=== PATIENT | female | born 1955 | race Caucasian/White ===

== ENCOUNTER → 2017-11-07 14:00 | Oncology outpatient (ONC) | payer OTHER, SELFPAY ==
--- NOTE | 2017-10-19 09:41 | PC.NURSE ---
Addendum entered by Apolonia Duke R.N. 10/22/17 16:11: Notes reviewed.Mary Jo would like pt to have CBC ,CMP monthly ,bone marrow biopsy in December and schedule a follow-up to determine ,work readiness and plan of care from hereon. message left for pt as to when last blood draw was so as to determine follow up date and/or sooner if needed.Pt asked to call back. Original Note: Per Apolonia's written note on 10/11/17 to Mary Jo HELM: Pt called and saw Marko Soy at [facility]. Last ANC 899 on 10/01 adn 1390 on 10/05. Per Pt, Dr Olivier didn't feel any intervention needed, just monitoring for a stable trend as pt told him employer is asking about returning to work. She does not feel ready. He plans a bone marrow in December. No follow up with us scheduled. When do you want to have her seen? It seems a visit and eval re: plan needed prior to return to work letter and etc. Mary Jo's response: Complex pancytopenia-unclear etiology-did she get a Dx at [facility]? I can't determine follow up without diagnosis or notes from [facility]. Today's update: request for records from [facility] sent by Roseanna. Will wait for records and schedule accordingly.
[2017-11-07 14:06] LABS: Add Manual Diff / Slide Review NO; Basophils Percent Auto 1.2 % (0-2); Eosinophils Percent Auto 6.4 % (2-4); Hematocrit 39.1 % (36-46); Hemoglobin 14.2 g/dL (12.0-16.0); Lymphocytes Percent Auto 41.4 % (25-40); Mean Corpuscular HGB Conc 36.3 % (30-36); Mean Corpuscular Hemoglobin 32.5 PG (26-34); Mean Corpuscular Volume 89.6 fL (80-100); Monocytes Percent Auto 8.9 % (3-14); Neutrophils Absolute Auto 1700 /uL (3000-5900); Neutrophils Percent Auto 42.1 % (50-75); Platelet Count 237 X10^3/uL (150-400); Red Blood Cell Count 4.36 X10^6/uL (4.0-5.2); Red Cell Distribution Width 13.7 % (11.6-14.8)
--- NOTE | 2017-11-07 14:09 | ONC.PN ---
Assessment and Plan - Time Spent with Patient IMPRESSION: 1. LEUKOPENIA/NEUTROPENIA, IMPROVED. 2. ANEMIA, NORMOCYTIC. RESOLVED. 3. THROMBOCYTOPENIA, RESOLVED. 4. CHRONIC FATIGUE. 5. COGNITIVE/MEMORY CONCERNS. Previous bone marrow aspiration on 07/01/2017 showed normal cellular marrow with markedly reduced myelopoiesis and relative erythroid predominance with mildly increased megakaryocytes and no evidence of acute leukemia. Immunohistochemistry stains showed CD 34 positive blast count less than 5%. By flow cytometry CD 34 blast count 3.9%. Cytogenetics normal female karyotype, 46, XX. No significant reticulin fibrosis. MDS FISH panel showed no abnormalities. She was treated with G-CSF with ANC rising up to 14,300 when it was stopped on September 17, 2017. She was advised to stop taking some over the counter herbal supplements and Yoruba herbs when she initially presented with leukopenia. She was also seen in consultation at [facility] by Dr. Marko Olivier October 08, 2017. His impression was a periodic episodes of pancytopenia likely secondary to underlying infectious agents which had since resolved. He suggested monitoring her blood counts monthly and returning to [place] for repeat bone marrow aspirate in December. They also anticipate performing a hotspot mutational analysis to look for any underlying clonal abnormalities at that time. I reviewed the findings and his recommendations with Ms. Rhodes at today's visit. She did not recall the plan to return to [place] in December. She is willing to do so and have the repeat bone marrow aspirate recommended by Dr. Olivier. We will assist in monitoring peripheral blood counts and plan to see her back in follow-up after the repeat bone marrow studies. Reviewed related questions and overall plan of care with her today. PLAN: 1. Continue self monitoring and call back with new questions or concerns. 2. CBC monthly. 3. Follow-up at [facility] with Dr. Olivier in December for bone marrow aspirate and related studies as planned. 4. Follow up with other providers as planned. 5. Return appointment with me in 2 months. DICTATED BY CYNDY MAHER MD MEDICAL ONCOLOGY AND HEMATOLOGY PN -Subjective Interval history: Medical oncology/hematology progress note Date of service: November 07, 2017 Patient name: Alethea Rhodes Date of : 1955 for Identification: Ms. Rhodes is a 62-year-old woman with pancytopenia who returns in follow-up today. Previously followed by Dr. Dasilva. Last seen here in clinic by Mary Jo HELM on 09/26/2017. Interval history: - Additional ROS Additional ROS: REVIEW OF SYSTEMS: General: No fever, chills or recent weight loss. Does note ongoing fatigue as primary concern. HEENT: No diplopia, epistaxis, gingival bleeding or dysphagia. Respiratory no productive cough or dyspnea. Cardiac: No chest pain, PND or orthopnea. GI: As above. : Stable. Musculoskeletal: Notes thinning skin for several months as well as recent hair loss/thinning. Neurologic: Trouble concentrating as well as memory loss over the past 6 months approximately. Results - Labs 11/07/17 13:39 11/07/17 13:39 Laboratory Last Values WBC 4.0 X10^3/uL (4.5-11.0) L 11/07/17 13:39 RBC 4.36 X10^6/uL (4.0-5.2) 11/07/17 13:39 Hgb 14.2 g/dL (12.0-16.0) 11/07/17 13:39 Hct 39.1 % (36-46) 11/07/17 13:39 MCV 89.6 fL (80-100) 11/07/17 13:39 MCH 32.5 PG (26-34) 11/07/17 13:39 MCHC 36.3 % (30-36) H 11/07/17 13:39 RDW 13.7 % (11.6-14.8) 11/07/17 13:39 Plt Count 237 X10^3/uL (150-400) 11/07/17 13:39 Neut % (Auto) 42.1 % (50-75) L 11/07/17 13:39 Lymph % (Auto) 41.4 % (25-40) H 11/07/17 13:39 [place] % (Auto) 8.9 % (3-14) 11/07/17 13:39 Eos % (Auto) 6.4 % (2-4) H 11/07/17 13:39 Baso % (Auto) 1.2 % (0-2) 11/07/17 13:39 Neut # (Auto) 1700 /uL (3871-3446) L 11/07/17 13:39 - Imaging Additional studies: Procedures Extraction of Iliac Bone Marrow, Percutaneous Approach, Diagnostic (06/22/17) Home Medications and Allergies Home Medications Medication Instructions Recorded Confirmed Type acetaminophen [Tylenol Extra 500 mg PO PRN PRN #0 07/11/17 History Strength] filgrastim [Neupogen] 300 mcg SQ QDAY #30 07/11/17 Rx [SUPPLIES FOR GCSF] #0 07/19/17 History amoxicillin-pot clavulanate 500 mg PO BID #14 tab 08/06/17 Rx [Augmentin] fluconazole [Diflucan] 100 mg PO QDAY #30 tab 08/06/17 Rx Allergies Allergy/AdvReac Type Severity Reaction Status Date / Time codeine [CODEINE] Allergy Unknown Unverified 09/19/17 11:59 Exam - Constitutional positive thin, positive cooperative - Routine HEENT Exam Head: Present: normocephalic, atraumatic. Absent: cushingoid faces Eye: Present: EOMI, PERRL. Absent: conjunctival icterus, scleral injection, periorbital ecchymosis, periorbital swelling ENT: Present: mucous membranes moist, oropharynx clear - Routine Neck Exam Present: supple, full ROM. Absent: lymphadenopathy, thyromegaly - Routine Chest/Breast/Axilla Exam Axillae: Absent: lymphadenopathy - Routine Respiratory Exam Present: Clear to auscultation bilaterally. Absent: decreased breath sounds, accessory muscle use, rales, wheezes - Routine Cardiovascular Exam Present: RRR, S1, S2. Absent: murmur, S3 - Routine Abdominal Exam Present: soft, normoactive bowel sounds. Absent: distended, organomegaly Palpation/Percussion: Absent: hepatomegaly, splenomegaly - Routine Extremities Exam Absent: cyanosis, clubbing, edema - Routine Skin Exam Absent: intact, cyanosis, erythema, mottling, petechiae, jaundice, rash, ecchymosis - Routine Neurological Exam Present: alert, oriented X3, moving all extremities, normal speech - Routine Psychiatric Exam Present: normal affect, normal thought process, cooperative
[2017-11-07 14:19] VITALS: BP 120/62; PULSE 76; RESP 15; TEMP 36.7; O2SAT 98
[2017-11-07 14:19] LABS: Alanine Aminotransferase 33 IU/L (9-52); Albumin 4.3 g/dL (3.5-5.0); Alkaline Phosphatase 109 U/L (38-126); Aspartate Aminotransferase 24 IU/L (14-36); BUN Creatinine Ratio 27.1 (6-22); Bilirubin Total 0.5 mg/dL (0.2-1.3); Blood Urea Nitrogen 19 mg/dL (7-17); Calcium 9.2 mg/dL (8.4-10.2); Carbon Dioxide 26 mmol/L (22-32); Chloride 102 mmol/L (98-107); Estimated Glomerular Filt Rate > 60.0 mL/min (>60); Globulin 2.2 g/dL (1.7-4.1); Glucose 93 mg/dL (80-110); HEMOLYSIS 18 (0-50); Potassium 4.3 mmol/L (3.4-5.1); Sodium 139 mmol/L (137-145); Total Protein 6.5 g/dL (6.3-8.2)
--- NOTE | 2017-11-07 14:24 | P.PNONC_ITS ---
Assessment and Plan - Time Spent with Patient IMPRESSION: 1. LEUKOPENIA/NEUTROPENIA, IMPROVED. 2. ANEMIA, NORMOCYTIC. RESOLVED. 3. THROMBOCYTOPENIA, RESOLVED. 4. CHRONIC FATIGUE. 5. COGNITIVE/MEMORY CONCERNS. Previous bone marrow aspiration on 07/01/2017 showed normal cellular marrow with markedly reduced myelopoiesis and relative erythroid predominance with mildly increased megakaryocytes and no evidence of acute leukemia. Immunohistochemistry stains showed CD 34 positive blast count less than 5%. By flow cytometry CD 34 blast count 3.9%. Cytogenetics normal female karyotype, 46 , XX. No significant reticulin fibrosis. MDS FISH panel showed no abnormalities. She was treated with G-CSF with ANC rising up to 14,300 when it was stopped on September 17, 2017. She was advised to stop taking some over the counter herbal supplements and Macedonian herbs when she initially presented with leukopenia. She was also seen in consultation at [facility] by Dr. Marko Olivier October 08, 2017. His impression was a periodic episodes of pancytopenia likely secondary to underlying infectious agents which had since resolved. He suggested monitoring her blood counts monthly and returning to [place] for repeat bone marrow aspirate in December. They also anticipate performing a hotspot mutational analysis to look for any underlying clonal abnormalities at that time. I reviewed the findings and his recommendations with Ms. Rhodes at today's visit. She did not recall the plan to return to [place] in December. She is willing to do so and have the repeat bone marrow aspirate recommended by Dr. Olivier. We will assist in monitoring peripheral blood counts and plan to see her back in follow-up after the repeat bone marrow studies. Reviewed related questions and overall plan of care with her today. PLAN: 1. Continue self monitoring and call back with new questions or concerns. 2. CBC monthly. 3. Follow-up at [facility] with Dr. Olivier in December for bone marrow aspirate and related studies as planned. 4. Follow up with other providers as planned. 5. Return appointment with me in 2 months. DICTATED BY CYNDY MAHER MD MEDICAL ONCOLOGY AND HEMATOLOGY PN -Subjective Interval history: Medical oncology/hematology progress note Date of service: November 07, 2017 Patient name: Alethea Rhodes Date of : 1955 for Identification: Ms. Rhodes is a 62-year-old woman with pancytopenia who returns in follow-up today. Previously followed by Dr. Dasilva. Last seen here in clinic by Mary Jo HELM on 09/26/2017. Interval history: - Additional ROS Additional ROS: REVIEW OF SYSTEMS: General: No fever, chills or recent weight loss. Does note ongoing fatigue as primary concern. HEENT: No diplopia, epistaxis, gingival bleeding or dysphagia. Respiratory no productive cough or dyspnea. Cardiac: No chest pain , PND or orthopnea. GI: As above. : Stable. Musculoskeletal: Notes thinning skin for several months as well as recent hair loss/thinning. Neurologic: Trouble concentrating as well as memory loss over the past 6 months approximately. Results - Labs 11/07/17 13:39 11/07/17 13:39 Laboratory Last Values WBC 4.0 X10^3/uL (4.5-11.0) L 11/07/17 13:39 RBC 4.36 X10^6/uL (4.0-5.2) 11/07/17 13:39 Hgb 14.2 g/dL (12.0-16.0) 11/07/17 13:39 Hct 39.1 % (36-46) 11/07/17 13:39 MCV 89.6 fL (80-100) 11/07/17 13:39 MCH 32.5 PG (26-34) 11/07/17 13:39 MCHC 36.3 % (30-36) H 11/07/17 13:39 RDW 13.7 % (11.6-14.8) 11/07/17 13:39 Plt Count 237 X10^3/uL (150-400) 11/07/17 13:39 Neut % (Auto) 42.1 % (50-75) L 11/07/17 13:39 Lymph % (Auto) 41.4 % (25-40) H 11/07/17 13:39 [place] % (Auto) 8.9 % (3-14) 11/07/17 13:39 Eos % (Auto) 6.4 % (2-4) H 11/07/17 13:39 Baso % (Auto) 1.2 % (0-2) 11/07/17 13:39 Neut # (Auto) 1700 /uL (7749-1057) L 11/07/17 13:39 - Imaging Additional studies: Procedures Extraction of Iliac Bone Marrow, Percutaneous Approach, Diagnostic (06/22/17) Home Medications and Allergies Home Medications Medication Instructions Recorded Confirmed Type acetaminophen [Tylenol Extra 500 mg PO PRN PRN #0 07/11/17 History Strength] filgrastim [Neupogen] 300 mcg SQ QDAY #30 07/11/17 Rx [SUPPLIES FOR GCSF] #0 07/19/17 History amoxicillin-pot clavulanate 500 mg PO BID #14 tab 08/06/17 Rx [Augmentin] fluconazole [Diflucan] 100 mg PO QDAY #30 tab 08/06/17 Rx Allergies Allergy/AdvReac Type Severity Reaction Status Date / Time codeine [CODEINE] Allergy Unknown Unverified 09/19/17 11:59 Exam - Constitutional positive thin, positive cooperative - Routine HEENT Exam Head: Present: normocephalic, atraumatic. Absent: cushingoid faces Eye: Present: EOMI, PERRL. Absent: conjunctival icterus, scleral injection, periorbital ecchymosis, periorbital swelling ENT: Present: mucous membranes moist, oropharynx clear - Routine Neck Exam Present: supple, full ROM. Absent: lymphadenopathy, thyromegaly - Routine Chest/Breast/Axilla Exam Axillae: Absent: lymphadenopathy - Routine Respiratory Exam Present: Clear to auscultation bilaterally. Absent: decreased breath sounds, accessory muscle use, rales, wheezes - Routine Cardiovascular Exam Present: RRR, S1, S2. Absent: murmur, S3 - Routine Abdominal Exam Present: soft, normoactive bowel sounds. Absent: distended, organomegaly Palpation/Percussion: Absent: hepatomegaly, splenomegaly - Routine Extremities Exam Absent: cyanosis, clubbing, edema - Routine Skin Exam Absent: intact, cyanosis, erythema, mottling, petechiae, jaundice, rash, ecchymosis - Routine Neurological Exam Present: alert, oriented X3, moving all extremities, normal speech - Routine Psychiatric Exam Present: normal affect, normal thought process, cooperative
--- NOTE | 2017-11-09 14:19 | ONC.NAV ---
Description: T/C re: Disability Benefits/Options Activity: Pt called to ask questions about the differences in types of disability that she can apply for, and the processes involved in the different options. Provided teaching about SSDI, short-term state disability (DSHS), unemployment and SSI. SAUSAGE CUTTER then sent the Social Security Disability application in the mail for pt. She will call this SAUSAGE CUTTER back next week should she have more questions and need for assistance in navigating the application process.
--- NOTE | 2017-11-20 12:55 | ONC.NAV ---
Description: Employment Disability Forms Activity: Completed pt's forms for Employment Security (unemployment/disability) and faxed them to the number provided on the form. Sent pt the originals.
== END ==
PROVIDERS: Nurse Practitioner Gerontology; PCP Family Medicine; Visit Provider Internal Medicine Hematology & Oncology
DX: D75.9 Disease of blood and blood-forming organs, unspecified (principal)
CPT/HCPCS: 36415; 80053; 85025; 99214

== ENCOUNTER → 2020-11-10 11:53 | Outpatient (CLI) | payer MEDICARE, SELFPAY ==
[2020-11-10 19:27] LABS: Hematocrit 41.6 % (36-46); Hemoglobin 14.2 g/dL (12.0-16.0); Mean Corpuscular HGB Conc 34.1 % (30-36); Mean Corpuscular Hemoglobin 30.1 PG (26-34); Mean Corpuscular Volume 88.3 fL (80-100); Platelet Count 205 X10^3/uL (150-400); Red Blood Cell Count 4.72 X10^6/uL (4.0-5.2); Red Cell Distribution Width 13.4 % (11.6-14.8); White Blood Cell Count 2.7 X10^3/uL (4.5-11.0)
[2020-11-10 20:11] LABS: Neutrophils Absolute Manual 918 /uL (3000-5900); Total Cells Counted 100
[2020-11-10 20:12] LABS: Platelet Estimate Adequate on smear; RBC Morphology Normal Morphology; Reactive Lymphocytes 1+
== END ==
PROVIDERS: PCP Family Medicine; Visit Provider Family Medicine
DX: D61.818 Other pancytopenia (principal)
CPT/HCPCS: 85025

== ENCOUNTER → 2021-04-01 10:05 | Outpatient (CLI) | payer MEDICARE, SELFPAY ==
[2021-04-01 18:47] LABS: Hematocrit 40.2 % (36-46); Hemoglobin 14.3 g/dL (12.0-16.0); Mean Corpuscular HGB Conc 35.5 % (30-36); Mean Corpuscular Hemoglobin 31.2 PG (26-34); Mean Corpuscular Volume 87.7 fL (80-100); Platelet Count 182 X10^3/uL (150-400); Red Blood Cell Count 4.59 X10^6/uL (4.0-5.2); Red Cell Distribution Width 15.1 % (11.6-14.8); White Blood Cell Count 4.6 X10^3/uL (4.5-11.0)
[2021-04-01 19:03] LABS: Add Manual Diff / Slide Review YES
[2021-04-01 19:27] LABS: Neutrophils Absolute Manual 690 /uL (3000-5900); Total Cells Counted 100
[2021-04-01 19:28] LABS: Anisocytosis 2+; Smudge Cells 1+
[2021-04-03 12:34] LABS: SARS CoV19 IgG Negative (Negative)
== END ==
PROVIDERS: PCP Family Medicine; Visit Provider Physician Assistant Medical
DX: D70.9 Neutropenia, unspecified (principal); R50.81 Fever presenting with conditions classified elsewhere; D61.818 Other pancytopenia; K12.1 Other forms of stomatitis
CPT/HCPCS: 85007; 85025; 86769

== ENCOUNTER → 2021-06-21 07:56 | Outpatient (CLI) | payer MEDICARE, SELFPAY ==
[2021-06-21 19:01] LABS: White Blood Cell Count 2.7 X10^3/uL (4.5-11.0)
[2021-06-21 19:07] LABS: Hematocrit 41.6 % (36-46); Hemoglobin 14.6 g/dL (12.0-16.0); Mean Corpuscular Hemoglobin 30.2 PG (26-34); Mean Corpuscular Volume 86.2 fL (80-100); Platelet Count 163 X10^3/uL (150-400); Red Blood Cell Count 4.82 X10^6/uL (4.0-5.2)
[2021-06-21 19:44] LABS: Neutrophils Absolute Manual 810 /uL (3000-5900); Platelet Morphology Comment NOTE; RBC Morphology Normal Morphology; Total Cells Counted 100
[2021-06-24 13:55] LABS: SARS-CoV-2 Antibody Titer <0.8
== END ==
PROVIDERS: PCP Family Medicine; Visit Provider Family Medicine
DX: D61.818 Other pancytopenia (principal)
CPT/HCPCS: 85025; 86769

== ENCOUNTER → 2021-08-18 13:26 | Outpatient (CLI) | payer MEDICARE, SELFPAY ==
[2021-08-18 20:35] LABS: Hematocrit 40.3 % (36-46); Hemoglobin 14.1 g/dL (12.0-16.0); Mean Corpuscular Volume 88.8 fL (80-100); Platelet Count 172 X10^3/uL (150-400); Red Blood Cell Count 4.54 X10^6/uL (4.0-5.2); Red Cell Distribution Width 14.8 % (11.6-14.8); White Blood Cell Count 2.3 X10^3/uL (4.5-11.0)
[2021-08-18 20:38] LABS: Neutrophils Absolute Manual 322 /uL (3000-5900); Total Cells Counted 50
[2021-08-18 20:39] LABS: Anisocytosis 1+; Ovalocytes 1+; Poikilocytosis 1+
== END ==
PROVIDERS: PCP Family Medicine; Visit Provider Family Medicine
DX: D70.9 Neutropenia, unspecified (principal); R50.81 Fever presenting with conditions classified elsewhere
CPT/HCPCS: 85025

== ENCOUNTER 2021-12-02 16:00 | Emergency (ER) | payer MEDICARE, SELFPAY ==
[2021-12-02] VITALS (7 sets, daily range): BP systolic 134–150; BP diastolic 69–89; PULSE 69–77; RESP 18–28; TEMP 36.7; O2SAT 97–99; BMI 16.9
--- NOTE | 2021-12-02 16:16 | PC.NURSE ---
Prior to event, patient was bent over petting her cat, stood up and started walking when she felt a shaking sensation in her head and has lost of memories after event. Denies hitting her head, not on thinners.
[2021-12-02] MEDS: SODIUM CHLORIDE 0.9% 1,000 ML 125 ML IV (16:39)
[2021-12-02 16:55] LABS: Add Manual Diff / Slide Review NO; Basophils Absolute Auto 0 /uL (0-100); Eosinophils Absolute Auto 0 /uL (0-450); Hematocrit 38.9 % (36-46); Hemoglobin 13.6 g/dL (12.0-16.0); Lymphocytes Absolute Auto 1000 /uL (1100-4500); Lymphocytes Percent Auto 22.2 % (25-40); Mean Corpuscular HGB Conc 34.9 % (30-36); Mean Corpuscular Hemoglobin 31.1 PG (26-34); Monocytes Absolute Auto 500 /uL (0-900); Monocytes Percent Auto 10.7 % (3-14); Neutrophils Absolute Auto 2900 /uL (1500-7000); Neutrophils Percent Auto 67.1 % (50-75); Platelet Count 159 X10^3/uL (150-400); Red Blood Cell Count 4.37 X10^6/uL (4.0-5.2); Red Cell Distribution Width 13.4 % (11.6-14.8); White Blood Cell Count 4.3 X10^3/uL (4.5-11.0)
[2021-12-02 17:06] LABS: Alanine Aminotransferase 21 IU/L (<35); Albumin 4.2 g/dL (3.5-5.0); Albumin Globulin Ratio 2.1 (1.0-2.8); Alkaline Phosphatase 84 U/L (38-126); Aspartate Aminotransferase 29 IU/L (14-36); BUN Creatinine Ratio 21.5 (6-22); Bilirubin Total 0.5 mg/dL (0.2-1.3); Blood Urea Nitrogen 20 mg/dL (7-17); Calcium 8.7 mg/dL (8.4-10.2); Carbon Dioxide 28 mmol/L (22-32); Chloride 106 mmol/L (98-107); Estimated Glomerular Filt Rate > 60 mL/min (>60); Glucose 101 mg/dL (80-110); HEMOLYSIS 22 (0-50); Lipase 104 U/L (23-300); Potassium 4.1 mmol/L (3.4-5.1); Sodium 138 mmol/L (137-145); Total Protein 6.2 g/dL (6.3-8.2)
[2021-12-02 17:15] LABS: Troponin I < 0.012 ng/mL (0.01-0.034)
--- NOTE | 2021-12-02 17:45 | ED_ITS ---
HPI - General Adult General Chief complaint: Syncope Stated complaint: Syncope Time Seen by Provider: 12/02/21 16:16 Source: patient and EMS Mode of arrival: EMS History of Present Illness HPI narrative: Patient is a 66-year-old female. She arrives by air lift from [facility]. She states she was bent over heading her cat. She stood up. She took a couple shifts. She states that it felt like someone had taken her head and was shaking back and forth. She then lost consciousness and fell. She sustained no injury from the fall. There was no seizure activity. She was not confused afterwards. She has been able to ambulate. She was evaluated by the medics who thought that she should come to the emergency department for further evaluation. She currently has no symptoms. Prior to falling she had no chest pain, palpitations, shortness of breath. She is not on blood thinners. Related Data Previous Rx's Medication Instructions Recorded fluconazole 100 mg tablet 100 mg PO DAILY #14 tabs 06/23/21 Magic Mouthwash Elixir See Rx Instructions .Route Q4-6H 07/18/21 #120 mL Allergies Allergy/AdvReac Type Severity Reaction Status Date / Time codeine [CODEINE] Allergy Unknown Verified 10/26/20 14:56 Review of Systems Constitutional Constitutional: Denies headache(s) ENT Ears, Nose, Mouth, and Throat: Denies headache(s) Cardiovascular Cardiovascular: Denies chest pain and Denies rapid heart rate Respiratory Respiratory: Denies cough Gastrointestinal Gastrointestinal: Denies abdominal pain, Denies nausea and Denies vomiting Musculoskeletal Musculoskeletal: Reports system reviewed and no additional complaints, except as documented Integumentary/Breasts Skin/Breast: Reports system reviewed and no additional complaints, except as documented Neurologic Neurologic: Denies headache(s) Hematologic/Lymphatic On Anticoagulants: No Patient History Medical History Hematest positive stools Severe neutropenia Social History Smoking Status: Never smoker Smoking Status: Never smoker Exam Initial Vital Signs Initial Vital Signs: Vital Signs Pulse Rate 75 12/02/21 16:02 Const General: cooperative, comfortable and well developed HENMN Head: normal to inspection and normocephalic Resp Effort & Inspection: normal respiratory effort Auscultation: clear to auscultation bilaterally Cardio Rate: regular rate Rhythm: regular rhythm GI Inspection: normal to inspection Skin General: no rashes or lesions noted Neuro General: patient alert, patient awake and moves all extremities Extrem General: normal to inspection and capillary refill normal Psych Appearance: grossly normal and well kempt Scores GCS [place] coma scale eye opening: Spontaneous [place] coma scale verbal response: Orientated [place] coma scale motor response: Obey commands Baldemar coma scale total score: 15 Nexus Score for C-Spine Focal Neurologic deficit present: No Midline spinal tenderness present: No Altered level of conciousness present: No Intoxication present: No Distracting Injury Present: No Nexus Criteria for C-spine: 0 Course Orders Ordered: Discontinued Medications Sodium Chloride (Normal Saline 0.9%) 1,000 mls @ 125 mls/hr IV CONT JOSUE Last Infusion: 12/02/21 17:54 Dose: 0 mls/hr Documented By: Admin: 12/02/21 16:39 Dose: 125 mls/hr Documented By: MALIHA Vital Signs Vital signs: Vital Signs - 8 hr 12/02/21 16:08 12/02/21 16:02 12/02/21 16:03 Temperature 98.1 F Pulse Rate 74 75 Respiratory Rate 18 Blood Pressure 139/89 139/89 Pulse Oximetry 97 Oxygen Delivery Method Room Air 12/02/21 16:03 Temperature Pulse Rate 77 Respiratory Rate 22 Blood Pressure Pulse Oximetry 97 Oxygen Delivery Method Medical Decision Making Lab Data Lab results reviewed: Yes I reviewed the patient's lab results. Result diagrams: 12/02/21 16:10 12/02/21 16:10 Labs: Lab Results 12/02/21 12/02/21 Range/Units 16:10 16:10 WBC 4.3 L (4.5-11.0) X10^3/uL RBC 4.37 (4.0-5.2) X10^6/uL Hgb 13.6 (12.0-16.0) g/dL Hct 38.9 (36-46) % MCV 89.0 (80-100) fL MCH 31.1 (26-34) PG MCHC 34.9 (30-36) % RDW 13.4 (11.6-14.8) % Plt Count 159 (150-400) X10^3/uL Neut % (Auto) 67.1 (50-75) % Lymph % (Auto) 22.2 L (25-40) % Randall % (Auto) 10.7 (3-14) % Eos % (Auto) 0.0 L (2-4) % Baso % (Auto) 0.0 (0-2) % Neut # (Auto) 2900 (5621-0020) /uL Lymph # (Auto) 1000 L (1685-6683) /uL Randall # (Auto) 500 (0-900) /uL Eos # (Auto) 0 (0-450) /uL Baso # (Auto) 0 (0-100) /uL Sodium 138 (137-145) mmol/L Potassium 4.1 (3.4-5.1) mmol/L Chloride 106 (98-107) mmol/L Carbon Dioxide 28 (22-32) mmol/L BUN 20 H (7-17) mg/dL Creatinine 0.93 (0.52-1.04) mg/dL Estimated GFR > 60 (>60) mL/min BUN/Creatinine Ratio 21.5 (6-22) Glucose 101 (80-110) mg/dL Calcium 8.7 (8.4-10.2) mg/dL Total Bilirubin 0.5 (0.2-1.3) mg/dL AST 29 (14-36) IU/L ALT 21 (<35) IU/L Alkaline Phosphatase 84 (38-126) U/L Troponin I < 0.012 (0.01-0.034) ng/mL Total Protein 6.2 L (6.3-8.2) g/dL Albumin 4.2 (3.5-5.0) g/dL Globulin 2.0 (1.7-4.1) g/dL Albumin/Globulin Ratio 2.1 (1.0-2.8) Lipase 104 (23-300) U/L ECG Data Attestation: I personally reviewed and interpreted this ECG as follows: Interpretation: Sinus rhythm Ventricular rate is 72 Normal axis Normal QRS Normal QTC No ST T wave changes MDM Narrative Medical decision making narrative: Given how she presented with initially having been bending over and then standing up I have a very high suspicion that this was a vagal mediated syncope. She currently has no symptoms. No reported injuries from the event. Low suspicion for CVA. Low suspicion for ACS. Her EKG is unremarkable. Labs unremarkable. No indication for radiologic studies. Was given return precautions and follow-up instructions. For understanding and agreement. Discharge Plan Departure Patient Disposition: Home Clinical Impression: Syncope Instructions: DI for Syncope in Adults (Fainting) Activity Restrictions/Additional Instructions: Be sure to increase your fluid intake. Continue to take all medications as directed. Contact your primary doctor for a follow-up. Return to the emergency department for any new or worsening symptoms. Prescriptions: No Action fluconazole 100 mg tablet 100 mg PO DAILY Qty: 14 3RF Magic Mouthwash Elixir 12.5 mg/5 mL mouthwash See Rx Instructions .ROUTE Q4-6H Qty: 120 1RF Rx Instructions: 1-2 Teasponns swish for 2 minutes spit, then swallow every 4-6 hours; Referrals: Rusty Galindo MD [Primary Care Provider] - Visit Report Forms: Patient Portal/API
== END 2021-12-02 18:21 | disposition home or self-care (01) ==
PROVIDERS: Emergency Provider Emergency Medicine; PCP Family Medicine
DX: R55 Syncope and collapse (principal)
CPT/HCPCS: 80053; 83690; 84484; 85025; 93005; 96360; 99284

== ENCOUNTER → 2021-12-07 11:56 | Outpatient (CLI) | payer MEDICARE, SELFPAY ==
[2021-12-07 19:36] LABS: Alanine Aminotransferase 22 IU/L (<35); Albumin 4.5 g/dL (3.5-5.0); Albumin Globulin Ratio 2.4 (1.0-2.8); Alkaline Phosphatase 98 U/L (38-126); Aspartate Aminotransferase 60 IU/L (14-36); Bilirubin Total 0.6 mg/dL (0.2-1.3); Bilirubin Unconjugated 0.5 mg/dL (0.0-1.1); Globulin 1.9 g/dL (1.7-4.1); HEMOLYSIS 25 (0-50); Total Protein 6.4 g/dL (6.3-8.2)
[2021-12-07 19:37] LABS: HEMOLYSIS < 15 (0-50); Iron 61 ug/dL (37-170)
[2021-12-07 19:44] LABS: Add Manual Diff / Slide Review NO; Basophils Absolute Auto 0 /uL (0-100); Basophils Percent Auto 0.1 % (0-2); Eosinophils Absolute Auto 0 /uL (0-450); Hematocrit 39.7 % (36-46); Lymphocytes Absolute Auto 1300 /uL (1100-4500); Lymphocytes Percent Auto 46.9 % (25-40); Mean Corpuscular HGB Conc 35.4 % (30-36); Mean Corpuscular Hemoglobin 31.4 PG (26-34); Mean Corpuscular Volume 88.8 fL (80-100); Monocytes Absolute Auto 400 /uL (0-900); Monocytes Percent Auto 13.6 % (3-14); Neutrophils Absolute Auto 1100 /uL (1500-7000); Neutrophils Percent Auto 39.4 % (50-75); Platelet Count 181 X10^3/uL (150-400); Red Blood Cell Count 4.47 X10^6/uL (4.0-5.2); Red Cell Distribution Width 13.4 % (11.6-14.8); White Blood Cell Count 2.7 X10^3/uL (4.5-11.0)
[2021-12-07 19:51] LABS: Percent Iron Saturation 24 % (15-50); Total Iron Binding Capacity 258 ug/dL (265-497); Transferrin 205 mg/dL (206-381)
[2021-12-07 19:57] LABS: TSH w/ Reflex to FT4 0.85 uIU/mL (0.47-4.68)
[2021-12-07 20:14] LABS: Vitamin B12 994 pg/mL (239-931)
[2021-12-07 21:30] LABS: Platelet Estimate Adequate on smear; RBC Morphology Normal Morphology
[2021-12-08 17:01] LABS: Hep C Virus Ab w/Reflex Quant NEGATIVE s/c (NEGATIVE)
[2021-12-10 13:32] LABS: ANA Screen, IFA Negative (.)
== END ==
PROVIDERS: PCP Family Medicine; Visit Provider Family Medicine
DX: R53.83 Other fatigue; D70.9 Neutropenia, unspecified; E46 Unspecified protein-calorie malnutrition; K12.0 Recurrent oral aphthae; R63.4 Abnormal weight loss; Z87.898 Personal history of other specified conditions
CPT/HCPCS: 80076; 82607; 83540; 83550; 84443; 85025; 86038; 86803

== ENCOUNTER → 2022-01-02 11:00 | Outpatient (CLI) | payer MEDICARE, SELFPAY ==
[2022-01-02 20:01] LABS: Add Manual Diff / Slide Review NO; Basophils Absolute Auto 0 /uL (0-100); Basophils Percent Auto 0.3 % (0-2); Eosinophils Absolute Auto 0 /uL (0-450); Hematocrit 39.8 % (36-46); Hemoglobin 14.1 g/dL (12.0-16.0); Lymphocytes Absolute Auto 1000 /uL (1100-4500); Lymphocytes Percent Auto 29.8 % (25-40); Mean Corpuscular HGB Conc 35.5 % (30-36); Mean Corpuscular Hemoglobin 31.5 PG (26-34); Mean Corpuscular Volume 88.6 fL (80-100); Monocytes Absolute Auto 400 /uL (0-900); Monocytes Percent Auto 12.5 % (3-14); Neutrophils Absolute Auto 2000 /uL (1500-7000); Neutrophils Percent Auto 57.4 % (50-75); Platelet Count 164 X10^3/uL (150-400); Red Blood Cell Count 4.49 X10^6/uL (4.0-5.2); Red Cell Distribution Width 13.9 % (11.6-14.8); White Blood Cell Count 3.4 X10^3/uL (4.5-11.0)
== END ==
PROVIDERS: PCP Family Medicine; Visit Provider Family Medicine
DX: Z87.898 Personal history of other specified conditions (principal); D70.9 Neutropenia, unspecified
CPT/HCPCS: 85025

== ENCOUNTER → 2022-02-06 13:33 | Outpatient (CLI) | payer MEDICARE, SELFPAY ==
[2022-02-06 19:50] LABS: Add Manual Diff / Slide Review NO; Basophils Absolute Auto 0 /uL (0-100); Basophils Percent Auto 0.1 % (0-2); Eosinophils Absolute Auto 0 /uL (0-450); Hematocrit 39.8 % (36-46); Lymphocytes Absolute Auto 1400 /uL (1100-4500); Lymphocytes Percent Auto 44.8 % (25-40); Mean Corpuscular HGB Conc 35.2 % (30-36); Mean Corpuscular Hemoglobin 31.2 PG (26-34); Mean Corpuscular Volume 88.8 fL (80-100); Monocytes Absolute Auto 400 /uL (0-900); Neutrophils Absolute Auto 1300 /uL (1500-7000); Neutrophils Percent Auto 41.1 % (50-75); Platelet Count 178 X10^3/uL (150-400); Red Blood Cell Count 4.48 X10^6/uL (4.0-5.2); Red Cell Distribution Width 13.7 % (11.6-14.8); White Blood Cell Count 3.1 X10^3/uL (4.5-11.0)
== END ==
PROVIDERS: PCP Family Medicine; Visit Provider Family Medicine
DX: D70.9 Neutropenia, unspecified (principal)
CPT/HCPCS: 85025

== ENCOUNTER → 2022-03-07 11:12 | Outpatient (CLI) | payer MEDICARE, SELFPAY | PROVIDERS: PCP Family Medicine; Referring Provider Family Medicine; Visit Provider Family Medicine | DX: Z78.0 Asymptomatic menopausal state (principal); Z13.820 Encounter for screening for osteoporosis; M81.0 Age-related osteoporosis without current pathological fracture | CPT/HCPCS: 77080 ==

== ENCOUNTER → 2022-03-09 13:14 | Outpatient (CLI) | payer MEDICARE, SELFPAY ==
[2022-03-09 19:15] LABS: Add Manual Diff / Slide Review NO; Basophils Absolute Auto 0 /uL (0-100); Basophils Percent Auto 0.1 % (0-2); Eosinophils Absolute Auto 0 /uL (0-450); Hematocrit 40.5 % (36-46); Hemoglobin 14.4 g/dL (12.0-16.0); Lymphocytes Absolute Auto 1100 /uL (1100-4500); Lymphocytes Percent Auto 51.3 % (25-40); Mean Corpuscular HGB Conc 35.5 % (30-36); Mean Corpuscular Hemoglobin 31.5 PG (26-34); Mean Corpuscular Volume 88.7 fL (80-100); Monocytes Absolute Auto 300 /uL (0-900); Neutrophils Absolute Auto 700 /uL (1500-7000); Neutrophils Percent Auto 33.6 % (50-75); Platelet Count 163 X10^3/uL (150-400); Red Blood Cell Count 4.56 X10^6/uL (4.0-5.2); Red Cell Distribution Width 13.6 % (11.6-14.8); White Blood Cell Count 2.2 X10^3/uL (4.5-11.0)
[2022-03-09 19:27] LABS: Hemoglobin A1C% w Est Avg Glu 4.4 % (4.0-6.0)
[2022-03-09 19:32] LABS: BUN Creatinine Ratio 18.4 (6-22); Blood Urea Nitrogen 18 mg/dL (7-17); Calcium 8.9 mg/dL (8.4-10.2); Carbon Dioxide 29 mmol/L (22-32); Chloride 102 mmol/L (98-107); Estimated Glomerular Filt Rate > 60 mL/min (>60); Glucose 101 mg/dL (80-110); HEMOLYSIS < 15 (0-50); Potassium 3.7 mmol/L (3.4-5.1); Sodium 138 mmol/L (137-145)
[2022-03-09 20:08] LABS: TSH w/ Reflex to FT4 0.98 uIU/mL (0.47-4.68)
[2022-03-09 20:26] LABS: Vitamin B12 794 pg/mL (239-931)
== END ==
PROVIDERS: PCP Family Medicine; Visit Provider Family Medicine
DX: R53.83 Other fatigue (principal); D70.9 Neutropenia, unspecified; K12.0 Recurrent oral aphthae; R41.3 Other amnesia; Z78.0 Asymptomatic menopausal state; Z79.52 Long term (current) use of systemic steroids
CPT/HCPCS: 80048; 82607; 83036; 84443; 85025

== ENCOUNTER → 2022-04-06 13:12 | Outpatient (CLI) | payer MEDICARE, SELFPAY ==
[2022-04-06 19:38] LABS: Add Manual Diff / Slide Review NO; Basophils Absolute Auto 0 /uL (0-100); Basophils Percent Auto 0.2 % (0-2); Eosinophils Absolute Auto 0 /uL (0-450); Hematocrit 39.9 % (36-46); Lymphocytes Absolute Auto 1500 /uL (1100-4500); Lymphocytes Percent Auto 58.7 % (25-40); Mean Corpuscular HGB Conc 35.2 % (30-36); Mean Corpuscular Hemoglobin 30.8 PG (26-34); Mean Corpuscular Volume 87.7 fL (80-100); Monocytes Absolute Auto 400 /uL (0-900); Monocytes Percent Auto 13.8 % (3-14); Neutrophils Absolute Auto 700 /uL (1500-7000); Neutrophils Percent Auto 27.3 % (50-75); Platelet Count 157 X10^3/uL (150-400); Red Blood Cell Count 4.55 X10^6/uL (4.0-5.2); Red Cell Distribution Width 13.4 % (11.6-14.8); White Blood Cell Count 2.6 X10^3/uL (4.5-11.0)
== END ==
PROVIDERS: PCP Family Medicine; Visit Provider Family Medicine
DX: Z87.898 Personal history of other specified conditions (principal); D70.9 Neutropenia, unspecified
CPT/HCPCS: 85025

== ENCOUNTER → 2022-05-08 13:02 | Outpatient (CLI) | payer MEDICARE, SELFPAY ==
[2022-05-08 19:52] LABS: Add Manual Diff / Slide Review NO; Basophils Absolute Auto 0 /uL (0-100); Basophils Percent Auto 0.2 % (0-2); Eosinophils Absolute Auto 0 /uL (0-450); Hematocrit 41.4 % (36-46); Hemoglobin 14.5 g/dL (12.0-16.0); Lymphocytes Absolute Auto 1200 /uL (1100-4500); Lymphocytes Percent Auto 49.5 % (25-40); Mean Corpuscular HGB Conc 35.2 % (30-36); Mean Corpuscular Hemoglobin 30.7 PG (26-34); Mean Corpuscular Volume 87.2 fL (80-100); Monocytes Absolute Auto 400 /uL (0-900); Monocytes Percent Auto 16.5 % (3-14); Neutrophils Absolute Auto 800 /uL (1500-7000); Neutrophils Percent Auto 33.8 % (50-75); Platelet Count 152 X10^3/uL (150-400); Red Blood Cell Count 4.74 X10^6/uL (4.0-5.2); Red Cell Distribution Width 13.4 % (11.6-14.8); White Blood Cell Count 2.3 X10^3/uL (4.5-11.0)
== END ==
PROVIDERS: PCP Family Medicine; Visit Provider Family Medicine
DX: D70.9 Neutropenia, unspecified (principal)
CPT/HCPCS: 85025

== ENCOUNTER → 2022-06-06 13:07 | Outpatient (CLI) | payer MEDICARE, SELFPAY ==
[2022-06-06 19:16] LABS: Add Manual Diff / Slide Review NO; Basophils Absolute Auto 0 /uL (0-100); Eosinophils Absolute Auto 0 /uL (0-450); Hematocrit 43.5 % (36-46); Hemoglobin 15.3 g/dL (12.0-16.0); Lymphocytes Absolute Auto 1500 /uL (1100-4500); Mean Corpuscular HGB Conc 35.2 % (30-36); Mean Corpuscular Hemoglobin 30.7 PG (26-34); Mean Corpuscular Volume 87.2 fL (80-100); Monocytes Absolute Auto 500 /uL (0-900); Monocytes Percent Auto 15.3 % (3-14); Neutrophils Absolute Auto 1300 /uL (1500-7000); Neutrophils Percent Auto 39.7 % (50-75); Platelet Count 180 X10^3/uL (150-400); Red Blood Cell Count 4.99 X10^6/uL (4.0-5.2); Red Cell Distribution Width 13.6 % (11.6-14.8); White Blood Cell Count 3.3 X10^3/uL (4.5-11.0)
== END ==
PROVIDERS: PCP Family Medicine; Visit Provider Family Medicine
DX: D70.9 Neutropenia, unspecified (principal)
CPT/HCPCS: 85025

== ENCOUNTER → 2022-10-05 13:02 | Outpatient (CLI) | payer MEDICARE, SELFPAY ==
[2022-10-05 20:04] LABS: Add Manual Diff / Slide Review NO; Basophils Absolute Auto 0 /uL (0-100); Basophils Percent Auto 0.1 % (0-2); Eosinophils Absolute Auto 0 /uL (0-450); Hematocrit 42.2 % (36-46); Hemoglobin 14.9 g/dL (12.0-16.0); Lymphocytes Absolute Auto 1300 /uL (1100-4500); Lymphocytes Percent Auto 52.2 % (25-40); Mean Corpuscular HGB Conc 35.3 % (30-36); Mean Corpuscular Hemoglobin 30.6 PG (26-34); Mean Corpuscular Volume 86.6 fL (80-100); Monocytes Absolute Auto 500 /uL (0-900); Monocytes Percent Auto 19.3 % (3-14); Neutrophils Absolute Auto 700 /uL (1500-7000); Neutrophils Percent Auto 28.4 % (50-75); Platelet Count 173 X10^3/uL (150-400); Red Blood Cell Count 4.87 X10^6/uL (4.0-5.2); Red Cell Distribution Width 13.9 % (11.6-14.8); White Blood Cell Count 2.6 X10^3/uL (4.5-11.0)
[2022-10-09 19:03] LABS: CCP Antibodies IgG/IgA <1 units (0-19)
== END ==
PROVIDERS: PCP Family Medicine; Visit Provider Family Medicine
DX: D70.9 Neutropenia, unspecified (principal); K12.0 Recurrent oral aphthae
CPT/HCPCS: 82525; 85025; 86200

== ENCOUNTER → 2022-12-13 11:22 | Outpatient (CLI) | payer MEDICARE, SELFPAY ==
[2022-12-13 20:19] LABS: Hematocrit 39.1 % (36-46); Hemoglobin 13.8 g/dL (12.0-16.0); Mean Corpuscular HGB Conc 35.3 % (30-36); Mean Corpuscular Hemoglobin 29.8 PG (26-34); Mean Corpuscular Volume 84.4 fL (80-100); Platelet Count 176 X10^3/uL (150-400); Red Blood Cell Count 4.64 X10^6/uL (4.0-5.2); Red Cell Distribution Width 13.6 % (11.6-14.8)
[2022-12-13 20:30] LABS: Add Manual Diff / Slide Review YES
[2022-12-13 20:34] LABS: BUN Creatinine Ratio 22.1 (6-22); Blood Urea Nitrogen 17 mg/dL (7-17); Calcium 8.6 mg/dL (8.4-10.2); Carbon Dioxide 33 mmol/L (22-32); Chloride 99 mmol/L (98-107); Estimated Glomerular Filt Rate > 60 mL/min (>60); Glucose 82 mg/dL (80-110); HEMOLYSIS 17 (0-50); Sodium 136 mmol/L (137-145)
[2022-12-13 20:36] LABS: Rheumatoid Factor < 8.6 IU/mL (<12.0)
[2022-12-13 20:42] LABS: White Blood Cell Count 1.5 X10^3/uL (4.5-11.0)
[2022-12-13 21:13] LABS: Neutrophils Absolute Manual 135 /uL (3000-5900); Total Cells Counted 100
[2022-12-13 21:14] LABS: RBC Morphology Normal Morphology
== END ==
PROVIDERS: Family Medicine; PCP Family Medicine; Visit Provider Family Medicine
DX: Z87.898 Personal history of other specified conditions (principal); D70.9 Neutropenia, unspecified; M81.0 Age-related osteoporosis without current pathological fracture; K12.0 Recurrent oral aphthae
CPT/HCPCS: 80048; 85007; 85025; 86430

== ENCOUNTER → 2022-12-18 10:54 | Outpatient (CLI) | payer MEDICARE, SELFPAY ==
[2022-12-18 20:15] LABS: Add Manual Diff / Slide Review NO; Basophils Absolute Auto 0 /uL (0-100); Basophils Percent Auto 0.1 % (0-2); Eosinophils Absolute Auto 0 /uL (0-450); Eosinophils Percent Auto 0.1 % (2-4); Hematocrit 40.3 % (36-46); Hemoglobin 14.1 g/dL (12.0-16.0); Lymphocytes Absolute Auto 1100 /uL (1100-4500); Lymphocytes Percent Auto 68.4 % (25-40); Mean Corpuscular Hemoglobin 29.8 PG (26-34); Mean Corpuscular Volume 85.2 fL (80-100); Monocytes Absolute Auto 300 /uL (0-900); Monocytes Percent Auto 19.8 % (3-14); Neutrophils Absolute Auto 200 /uL (1500-7000); Neutrophils Percent Auto 11.6 % (50-75); Platelet Count 177 X10^3/uL (150-400); Red Blood Cell Count 4.73 X10^6/uL (4.0-5.2); Red Cell Distribution Width 14.1 % (11.6-14.8)
== END ==
PROVIDERS: PCP Family Medicine; Visit Provider Family Medicine
DX: D70.9 Neutropenia, unspecified (principal)
CPT/HCPCS: 85025

== ENCOUNTER → 2022-12-28 12:57 | Outpatient (CLI) | payer MEDICARE, SELFPAY ==
[2022-12-28 20:24] LABS: Hematocrit 40.3 % (36-46); Hemoglobin 14.4 g/dL (12.0-16.0); Mean Corpuscular HGB Conc 35.6 % (30-36); Mean Corpuscular Hemoglobin 30.1 PG (26-34); Mean Corpuscular Volume 84.5 fL (80-100); Platelet Count 168 X10^3/uL (150-400); Red Blood Cell Count 4.77 X10^6/uL (4.0-5.2)
[2022-12-28 20:44] LABS: Add Manual Diff / Slide Review YES; White Blood Cell Count 1.6 X10^3/uL (4.5-11.0)
[2022-12-28 21:16] LABS: RBC Morphology Normal Morphology; Total Cells Counted 100
[2022-12-28 21:23] LABS: Neutrophils Absolute Manual 96 /uL (3000-5900)
== END ==
PROVIDERS: PCP Family Medicine; Visit Provider Family Medicine
DX: Z87.898 Personal history of other specified conditions (principal); D70.9 Neutropenia, unspecified
CPT/HCPCS: 85007; 85025

== ENCOUNTER → 2023-01-24 10:58 | Outpatient (CLI) | payer MEDICARE, SELFPAY ==
[2023-01-24 19:35] LABS: Add Manual Diff / Slide Review NO; Basophils Absolute Auto 0 /uL (0-100); Basophils Percent Auto 0.1 % (0-2); Eosinophils Absolute Auto 0 /uL (0-450); Hematocrit 40.3 % (36-46); Hemoglobin 14.2 g/dL (12.0-16.0); Lymphocytes Absolute Auto 1000 /uL (1100-4500); Lymphocytes Percent Auto 73.3 % (25-40); Mean Corpuscular HGB Conc 35.3 % (30-36); Mean Corpuscular Hemoglobin 29.8 PG (26-34); Mean Corpuscular Volume 84.5 fL (80-100); Monocytes Absolute Auto 200 /uL (0-900); Monocytes Percent Auto 17.3 % (3-14); Neutrophils Percent Auto 9.3 % (50-75); Platelet Count 159 X10^3/uL (150-400); Red Blood Cell Count 4.77 X10^6/uL (4.0-5.2); Red Cell Distribution Width 14.3 % (11.6-14.8)
[2023-01-24 20:29] LABS: Neutrophils Absolute Auto 100 /uL (1500-7000); White Blood Cell Count 1.4 X10^3/uL (4.5-11.0)
== END ==
PROVIDERS: PCP Family Medicine; Visit Provider Physician Assistant
DX: D70.9 Neutropenia, unspecified (principal)
CPT/HCPCS: 85025

== ENCOUNTER → 2023-01-29 11:27 | Outpatient (CLI) | payer MEDICARE, SELFPAY ==
[2023-01-29 20:07] LABS: Hematocrit 39.6 % (36-46); Hemoglobin 13.9 g/dL (12.0-16.0); Mean Corpuscular Hemoglobin 29.2 PG (26-34); Mean Corpuscular Volume 83.5 fL (80-100); Platelet Count 157 X10^3/uL (150-400); Red Blood Cell Count 4.75 X10^6/uL (4.0-5.2); Red Cell Distribution Width 14.4 % (11.6-14.8)
[2023-01-29 20:15] LABS: Alanine Aminotransferase 20 IU/L (<35); Albumin 4.1 g/dL (3.5-5.0); Albumin Globulin Ratio 2.4 (1.0-2.8); Alkaline Phosphatase 108 U/L (38-126); Aspartate Aminotransferase 24 IU/L (14-36); BUN Creatinine Ratio 21.3 (6-22); Bilirubin Total 0.5 mg/dL (0.2-1.3); Blood Urea Nitrogen 17 mg/dL (7-17); C-Reactive Protein Quant 0.7 mg/dL (<1.0); Calcium 8.9 mg/dL (8.4-10.2); Carbon Dioxide 29 mmol/L (22-32); Chloride 104 mmol/L (98-107); Estimated Glomerular Filt Rate > 60 mL/min (>60); Globulin 1.7 g/dL (1.7-4.1); Glucose 69 mg/dL (80-110); HEMOLYSIS < 15 (0-50); Potassium 3.9 mmol/L (3.4-5.1); Sodium 138 mmol/L (137-145); Total Protein 5.8 g/dL (6.3-8.2)
[2023-01-29 20:23] LABS: Erythrocyte Sedimentation Rate 3 MM/HR (0-20)
[2023-01-29 20:39] LABS: White Blood Cell Count 1.3 X10^3/uL (4.5-11.0)
[2023-01-29 21:14] LABS: Folate > 20.0 ng/mL (2.76-20.0); Vitamin B12 663 pg/mL (239-931)
[2023-01-29 21:30] LABS: Neutrophils Absolute Manual 52 /uL (3000-5900); Polychromasia 1+; Smudge Cells 2+; Total Cells Counted 100
== END ==
PROVIDERS: PCP Family Medicine; Visit Provider Family Medicine
DX: Z87.898 Personal history of other specified conditions (principal); R53.83 Other fatigue; D70.9 Neutropenia, unspecified
CPT/HCPCS: 80053; 82607; 82746; 84443; 85025; 85651; 86140

== ENCOUNTER → 2023-02-05 10:03 | Outpatient (CLI) | payer MEDICARE, SELFPAY ==
[2023-02-05 20:18] LABS: Hematocrit 39.6 % (36-46); Hemoglobin 14.1 g/dL (12.0-16.0); Mean Corpuscular HGB Conc 35.6 % (30-36); Mean Corpuscular Hemoglobin 29.6 PG (26-34); Mean Corpuscular Volume 83.2 fL (80-100); Platelet Count 154 X10^3/uL (150-400); Red Blood Cell Count 4.76 X10^6/uL (4.0-5.2); Red Cell Distribution Width 14.4 % (11.6-14.8)
[2023-02-05 20:39] LABS: White Blood Cell Count 1.4 X10^3/uL (4.5-11.0)
[2023-02-05 20:40] LABS: Add Manual Diff / Slide Review YES
[2023-02-05 21:22] LABS: Neutrophils Absolute Manual 98 /uL (3000-5900); Total Cells Counted 100
[2023-02-05 21:24] LABS: Burr Cells 1+; Microcytosis 1+
== END ==
PROVIDERS: PCP Family Medicine; Visit Provider Family Medicine
DX: D70.9 Neutropenia, unspecified (principal)
CPT/HCPCS: 85007; 85025

== ENCOUNTER → 2023-02-13 11:32 | Outpatient (CLI) | payer MEDICARE, SELFPAY ==
[2023-02-13 20:54] LABS: Hematocrit 40.6 % (36-46); Hemoglobin 14.3 g/dL (12.0-16.0); Mean Corpuscular HGB Conc 35.3 % (30-36); Mean Corpuscular Hemoglobin 29.4 PG (26-34); Mean Corpuscular Volume 83.3 fL (80-100); Platelet Count 165 X10^3/uL (150-400); Red Blood Cell Count 4.87 X10^6/uL (4.0-5.2); Red Cell Distribution Width 14.3 % (11.6-14.8)
[2023-02-13 21:25] LABS: Total Cells Counted 100
[2023-02-13 21:27] LABS: Anisocytosis 1+
[2023-02-13 22:20] LABS: Neutrophils Absolute Manual 112 /uL (3000-5900)
[2023-02-13 22:24] LABS: White Blood Cell Count 1.6 X10^3/uL (4.5-11.0)
== END ==
PROVIDERS: PCP Family Medicine; Visit Provider Family Medicine
DX: D70.9 Neutropenia, unspecified (principal); Z87.898 Personal history of other specified conditions
CPT/HCPCS: 85025

== ENCOUNTER → 2023-02-28 10:50 | Outpatient (CLI) | payer MEDICARE, SELFPAY ==
[2023-02-28 20:09] LABS: BUN Creatinine Ratio 16.5 (6-22); Blood Urea Nitrogen 13 mg/dL (7-17); Calcium 9.4 mg/dL (8.4-10.2); Carbon Dioxide 32 mmol/L (22-32); Chloride 103 mmol/L (98-107); Estimated Glomerular Filt Rate > 60 mL/min (>60); Glucose 81 mg/dL (80-110); HEMOLYSIS < 15 (0-50); Potassium 4.1 mmol/L (3.4-5.1); Sodium 139 mmol/L (137-145)
[2023-02-28 21:16] LABS: Add Manual Diff / Slide Review NO; Basophils Absolute Auto 0 /uL (0-100); Basophils Percent Auto 0.1 % (0-2); Eosinophils Absolute Auto 0 /uL (0-450); Hematocrit 40.3 % (36-46); Lymphocytes Absolute Auto 900 /uL (1100-4500); Lymphocytes Percent Auto 66.3 % (25-40); Mean Corpuscular HGB Conc 34.7 % (30-36); Mean Corpuscular Volume 83.4 fL (80-100); Monocytes Absolute Auto 200 /uL (0-900); Monocytes Percent Auto 16.6 % (3-14); Platelet Count 162 X10^3/uL (150-400); Red Blood Cell Count 4.83 X10^6/uL (4.0-5.2); Red Cell Distribution Width 15.1 % (11.6-14.8)
[2023-02-28 21:50] LABS: Neutrophils Absolute Auto 200 /uL (1500-7000); White Blood Cell Count 1.3 X10^3/uL (4.5-11.0)
== END ==
PROVIDERS: PCP Family Medicine; Visit Provider Family Medicine
DX: Z87.898 Personal history of other specified conditions (principal); D70.9 Neutropenia, unspecified; R63.4 Abnormal weight loss
CPT/HCPCS: 80048; 85025

== ENCOUNTER → 2023-03-14 13:06 | Outpatient (CLI) | payer MEDICARE, SELFPAY ==
[2023-03-14 20:13] LABS: Hematocrit 41.5 % (36-46); Hemoglobin 14.2 g/dL (12.0-16.0); Mean Corpuscular HGB Conc 34.3 % (30-36); Mean Corpuscular Hemoglobin 29.1 PG (26-34); Mean Corpuscular Volume 84.9 fL (80-100); Platelet Count 180 X10^3/uL (150-400); Red Blood Cell Count 4.88 X10^6/uL (4.0-5.2); Red Cell Distribution Width 15.3 % (11.6-14.8)
[2023-03-14 20:28] LABS: Add Manual Diff / Slide Review YES; White Blood Cell Count 1.7 X10^3/uL (4.5-11.0)
[2023-03-14 21:02] LABS: Neutrophils Absolute Manual 272 /uL (3000-5900); Total Cells Counted 100
[2023-03-14 21:03] LABS: RBC Morphology Normal Morphology
== END ==
PROVIDERS: PCP Family Medicine; Visit Provider Family Medicine
DX: D70.9 Neutropenia, unspecified (principal)
CPT/HCPCS: 85007; 85025

== ENCOUNTER → 2023-03-27 13:05 | Outpatient (CLI) | payer MEDICARE, SELFPAY ==
[2023-03-27 19:27] LABS: Hematocrit 42.4 % (36-46); Hemoglobin 14.8 g/dL (12.0-16.0); Mean Corpuscular HGB Conc 34.9 % (30-36); Mean Corpuscular Hemoglobin 28.8 PG (26-34); Mean Corpuscular Volume 82.7 fL (80-100); Platelet Count 162 X10^3/uL (150-400); Red Blood Cell Count 5.12 X10^6/uL (4.0-5.2); Red Cell Distribution Width 14.7 % (11.6-14.8)
[2023-03-27 19:58] LABS: Add Manual Diff / Slide Review YES; White Blood Cell Count 1.6 X10^3/uL (4.5-11.0)
[2023-03-27 20:04] LABS: Neutrophils Absolute Manual 288 /uL (3000-5900); Total Cells Counted 50
[2023-03-27 20:05] LABS: RBC Morphology Normal Morphology
== END ==
PROVIDERS: PCP Family Medicine; Visit Provider Family Medicine
DX: D70.9 Neutropenia, unspecified (principal)
CPT/HCPCS: 85007; 85025

== ENCOUNTER → 2023-04-18 13:28 | Outpatient (CLI) | payer MEDICARE, SELFPAY ==
[2023-04-18 20:00] LABS: Add Manual Diff / Slide Review YES; Hematocrit 40.9 % (36-46); Hemoglobin 14.2 g/dL (12.0-16.0); Mean Corpuscular HGB Conc 34.7 % (30-36); Mean Corpuscular Hemoglobin 29.1 PG (26-34); Mean Corpuscular Volume 83.8 fL (80-100); Platelet Count 170 X10^3/uL (150-400); Red Blood Cell Count 4.88 X10^6/uL (4.0-5.2); Red Cell Distribution Width 15.4 % (11.6-14.8)
[2023-04-18 20:22] LABS: Neutrophils Absolute Manual 320 /uL (3000-5900); Total Cells Counted 100
[2023-04-18 20:23] LABS: RBC Morphology Normal Morphology
== END ==
PROVIDERS: PCP Family Medicine; Visit Provider Family Medicine
DX: D70.9 Neutropenia, unspecified (principal)
CPT/HCPCS: 85007; 85025

== ENCOUNTER → 2023-04-26 11:51 | Outpatient (CLI) | payer MEDICARE, SELFPAY ==
--- NOTE | 2023-04-26 11:52 | DI.MG.S_ITS ---
BILATERAL DIGITAL SCREENING MAMMOGRAM 3D/2D WITH CAD: 04/26/2023 CLINICAL: Routine screening. Baseline exam. No prior exams were available for comparison. Both breasts are heterogeneously dense, which may obscure small masses (category c / 51-75% glandular tissue). Current study was also evaluated with a Computer Aided Detection (CAD) system. No significant masses, calcifications, or other findings are seen in either breast. IMPRESSION: NEGATIVE There is no mammographic evidence of malignancy. A 1 year screening mammogram is recommended. Based on the Tyrer Cuzick model (a risk assessment model) the patient's lifetime risk is 9.4% and her 10 year risk is 5.2%. According to the ACR, ACS, and NCCN guidelines, an annual breast MRI exam along with mammogram is recommended if the patient's lifetime risk is 20% or greater. This exam was interpreted at Station ID: [id number]. NOTE: For mammograms, a report in lay terms will be sent to the patient. Approximately 15% of breast malignancies will not be visualized mammographically. In the management of a palpable breast mass, a negative mammogram must not discourage biopsy of a clinically suspicious lesion. Electronically Signed By: Garrick teresa/abraham:04/27/2023 19:30:48 letter sent: Normal Exam ACR BI-RADS Category 1: Negative [id number]
== END ==
PROVIDERS: PCP Family Medicine; Referring Provider Obstetrics & Gynecology; Visit Provider Obstetrics & Gynecology
DX: Z12.31 Encounter for screening mammogram for malignant neoplasm of breast (principal)
CPT/HCPCS: 77063; 77067

== ENCOUNTER → 2023-05-15 13:04 | Outpatient (CLI) | payer MEDICARE, SELFPAY ==
[2023-05-15 20:52] LABS: Hematocrit 40.7 % (36-46); Hemoglobin 14.3 g/dL (12.0-16.0); Mean Corpuscular HGB Conc 35.1 % (30-36); Mean Corpuscular Hemoglobin 29.8 PG (26-34); Mean Corpuscular Volume 84.8 fL (80-100); Platelet Count 141 X10^3/uL (150-400); Red Blood Cell Count 4.79 X10^6/uL (4.0-5.2); Red Cell Distribution Width 15.5 % (11.6-14.8)
[2023-05-15 21:10] LABS: Add Manual Diff / Slide Review YES; White Blood Cell Count 1.8 X10^3/uL (4.5-11.0)
[2023-05-15 21:14] LABS: Neutrophils Absolute Manual 270 /uL (3000-5900); RBC Morphology Normal Morphology; Total Cells Counted 100
== END ==
PROVIDERS: PCP Family Medicine; Visit Provider Family Medicine
DX: D70.9 Neutropenia, unspecified (principal)
CPT/HCPCS: 85007; 85025

== ENCOUNTER → 2023-07-03 12:06 | Outpatient (CLI) | payer MEDICARE, SELFPAY ==
[2023-07-03 20:35] LABS: Hematocrit 40.8 % (36-46); Hemoglobin 14.3 g/dL (12.0-16.0); Mean Corpuscular HGB Conc 35.1 % (30-36); Mean Corpuscular Hemoglobin 30.3 PG (26-34); Mean Corpuscular Volume 86.3 fL (80-100); Platelet Count 154 X10^3/uL (150-400); Red Blood Cell Count 4.73 X10^6/uL (4.0-5.2); Red Cell Distribution Width 14.8 % (11.6-14.8)
[2023-07-03 22:02] LABS: Add Manual Diff / Slide Review YES
[2023-07-03 22:05] LABS: Neutrophils Absolute Manual 486 /uL (3000-5900); RBC Morphology Normal Morphology; Total Cells Counted 100
[2023-07-04 09:33] LABS: White Blood Cell Count 1.8 X10^3/uL (4.5-11.0)
== END ==
PROVIDERS: PCP Family Medicine; Visit Provider Family Medicine
DX: D70.9 Neutropenia, unspecified (principal)
CPT/HCPCS: 85007; 85025

== ENCOUNTER → 2023-08-02 12:58 | Outpatient (CLI) | payer MEDICARE, SELFPAY ==
[2023-08-02 19:36] LABS: Hematocrit 39.5 % (36-46); Mean Corpuscular HGB Conc 35.3 % (30-36); Mean Corpuscular Hemoglobin 29.9 PG (26-34); Mean Corpuscular Volume 84.7 fL (80-100); Platelet Count 152 X10^3/uL (150-400); Red Blood Cell Count 4.67 X10^6/uL (4.0-5.2); Red Cell Distribution Width 14.5 % (11.6-14.8)
[2023-08-02 20:15] LABS: Add Manual Diff / Slide Review YES
[2023-08-02 20:20] LABS: Neutrophils Absolute Manual 238 /uL (3000-5900); Total Cells Counted 50
[2023-08-02 20:21] LABS: Platelet Estimate Adequate on smear; RBC Morphology Normal Morphology
[2023-08-02 20:25] LABS: White Blood Cell Count 1.7 X10^3/uL (4.5-11.0)
== END ==
PROVIDERS: PCP Family Medicine; Visit Provider Family Medicine
DX: D70.9 Neutropenia, unspecified (principal)
CPT/HCPCS: 85007; 85025

== ENCOUNTER → 2023-09-19 13:27 | Outpatient (CLI) | payer MEDICARE, SELFPAY ==
[2023-09-19 20:43] LABS: Hematocrit 40.6 % (36-46); Hemoglobin 14.2 g/dL (12.0-16.0); Mean Corpuscular Hemoglobin 30.2 PG (26-34); Mean Corpuscular Volume 86.3 fL (80-100); Platelet Count 151 X10^3/uL (150-400); Red Blood Cell Count 4.71 X10^6/uL (4.0-5.2); Red Cell Distribution Width 14.1 % (11.6-14.8)
[2023-09-19 21:03] LABS: Add Manual Diff / Slide Review YES; White Blood Cell Count 1.7 X10^3/uL (4.5-11.0)
[2023-09-19 21:09] LABS: Neutrophils Absolute Manual 238 /uL (3000-5900); RBC Morphology Normal Morphology; Total Cells Counted 100
== END ==
PROVIDERS: PCP Family Medicine; Visit Provider Family Medicine
DX: D70.9 Neutropenia, unspecified (principal)
CPT/HCPCS: 85007; 85025

== ENCOUNTER → 2023-10-17 13:04 | Outpatient (CLI) | payer MEDICARE, SELFPAY ==
[2023-10-17 21:12] LABS: Hematocrit 37.8 % (36-46); Hemoglobin 13.3 g/dL (12.0-16.0); Mean Corpuscular HGB Conc 35.3 % (30-36); Mean Corpuscular Hemoglobin 30.4 PG (26-34); Mean Corpuscular Volume 86.1 fL (80-100); Platelet Count 156 X10^3/uL (150-400); Red Blood Cell Count 4.39 X10^6/uL (4.0-5.2); Red Cell Distribution Width 14.6 % (11.6-14.8)
[2023-10-17 21:47] LABS: Add Manual Diff / Slide Review YES
[2023-10-17 21:51] LABS: RBC Morphology Normal Morphology; Total Cells Counted 100
[2023-10-17 21:56] LABS: Neutrophils Absolute Manual 144 /uL (3000-5900)
[2023-10-17 21:57] LABS: White Blood Cell Count 1.6 X10^3/uL (4.5-11.0)
== END ==
PROVIDERS: PCP Family Medicine; Visit Provider Family Medicine
DX: D70.9 Neutropenia, unspecified (principal)
CPT/HCPCS: 85007; 85025

== ENCOUNTER → 2023-11-28 13:03 | Outpatient (CLI) | payer MEDICARE, SELFPAY ==
[2023-11-28 20:42] LABS: Hematocrit 38.7 % (36-46); Hemoglobin 13.6 g/dL (12.0-16.0); Mean Corpuscular Hemoglobin 29.5 PG (26-34); Mean Corpuscular Volume 84.5 fL (80-100); Platelet Count 158 X10^3/uL (150-400); Red Blood Cell Count 4.59 X10^6/uL (4.0-5.2); Red Cell Distribution Width 14.8 % (11.6-14.8)
[2023-11-28 20:57] LABS: Add Manual Diff / Slide Review YES; White Blood Cell Count 1.7 X10^3/uL (4.5-11.0)
[2023-11-28 21:02] LABS: Neutrophils Absolute Manual 68 /uL (3000-5900); Total Cells Counted 100
[2023-11-28 21:03] LABS: RBC Morphology Normal Morphology
== END ==
PROVIDERS: PCP Family Medicine; Visit Provider Family Medicine
DX: D70.9 Neutropenia, unspecified (principal)
CPT/HCPCS: 85007; 85025

== ENCOUNTER → 2024-01-02 13:02 | Outpatient (CLI) | payer MEDICARE, SELFPAY ==
[2024-01-02 20:46] LABS: Hemoglobin 13.2 g/dL (12.0-16.0); Mean Corpuscular HGB Conc 34.8 % (30-36); Mean Corpuscular Hemoglobin 29.7 PG (26-34); Mean Corpuscular Volume 85.4 fL (80-100); Platelet Count 149 X10^3/uL (150-400); Red Blood Cell Count 4.44 X10^6/uL (4.0-5.2); Red Cell Distribution Width 14.9 % (11.6-14.8)
[2024-01-02 21:51] LABS: Add Manual Diff / Slide Review YES; White Blood Cell Count 1.4 X10^3/uL (4.5-11.0)
[2024-01-02 21:55] LABS: Neutrophils Absolute Manual 140 /uL (3000-5900); RBC Morphology Normal Morphology; Total Cells Counted 100
== END ==
PROVIDERS: PCP Family Medicine; Referring Provider Family Medicine; Visit Provider Family Medicine
DX: D70.9 Neutropenia, unspecified (principal)
CPT/HCPCS: 85007; 85025

== ENCOUNTER 2024-01-25 14:08 | Emergency (ER) | payer MEDICARE, SELFPAY ==
[2024-01-25] VITALS (20 sets, daily range): BP systolic 126–159; BP diastolic 60–74; PULSE 75–91; RESP 16–18; TEMP 36.7–36.8; O2SAT 96–99; BMI 19.7
--- NOTE | 2024-01-25 15:50 | PC.NURSE ---
Pt has right axilla swelling with center being a brown/black appearing scab surrounded by redness and swollen with linear rash in her axilla. Hx neutropenia and concerned for having infection reporting chills. Sinus rhythm and Afebrile in ER with oral temp 98.2f. Denies known bug bite. No drainage observed.
--- NOTE | 2024-01-25 17:48 | ED.SKABFB ---
HPI - Skin/Abscess/Foreign Bdy <Elliott Glaser MD - Last Filed: 01/25/24 20:57> General Chief complaint: Skin/Abscess/Foreign Body Stated complaint: IV anitibiotics sent by [facility] Time Seen by Provider: 01/25/24 15:47 Source: patient Mode of arrival: Ambulatory Limitations: no limitations History of Present Illness HPI narrative: 68-year-old female with history of neutropenia of unclear etiology, complains of 2 days' duration right axillary skin lesion, felt like she was sweating [id number], not sure if it might have drained spontaneously, went to [facility] today, concern for possible infection, no ultrasound available there, transferred here for further evaluation. No fevers or chills. She feels the redness is decreased from before, unclear if the wound might have drained, she thought that maybe she was perspiring from the right side, but it might have actually been draining some fluid. She also felt some perspiration left axilla as well so unclear. In general the area seems improved with regard to area of redness and discomfort, and decreased swelling, since seen in clinic. No antibiotics started thus far. Related Data Previous Rx's Medication Instructions Recorded doxycycline hyclate 100 mg capsule 100 mg PO BID #14 caps 01/25/24 Allergies Allergy/AdvReac Type Severity Reaction Status Date / Time codeine [CODEINE] Allergy Unknown Verified 01/25/24 14:22 Review of Systems <Elliott Glaser MD - Last Filed: 01/25/24 20:57> Review of Systems Narrative: see HPI Patient History <Elliott Glaser MD - Last Filed: 01/25/24 20:57> Medical History Hematest positive stools Severe neutropenia Social History Smoking Status: Never smoker Smoking Status: Never smoker alcohol intake frequency: 0-2 drinks per day Substance Use Type: does not use Exam <Elliott Glaser MD - Last Filed: 01/25/24 20:57> Narrative Exam Narrative: GENERAL: Well-developed patient, in mild distress. HEAD: Atraumatic. Normocephalic. EYES: Pupils equal round and reactive. Extraocular motions intact. No scleral icterus. No injection or drainage. ENT: Nose without bleeding, purulent drainage. Throat without erythema, tonsillar hypertrophy or exudate. Airway patent. NECK: Trachea midline. Non tender CARDIOVASCULAR: Regular rate and rhythm without murmurs, gallops, or rubs. RESPIRATORY: Clear to auscultation. Breath sounds equal bilaterally. No wheezes, rales, or rhonchi. GASTROINTESTINAL: Abdomen soft, non-tender, nondistended. EXTREMITIES: No edema or joint tenderness. Right axilla with 2 x 1.5 cm oval area of induration with central shallow ulcer, some nodularity on palpation, no obvious fluctuance, I could not express any fluid from the lesion. Patient states the area of redness is decreased from before clinic evaluation BACK: Nontender without deformity or crepitance. No flank tenderness. NEURO: AOx3. SKIN: No rash or erythema of visible areas Initial Vital Signs Initial Vital Signs: Vital Signs Pulse Oximetry 98 01/25/24 14:15 <Bernadette Tejeda MD - Last Filed: 01/25/24 20:08> Initial Vital Signs Initial Vital Signs: Vital Signs Pulse Oximetry 98 01/25/24 14:15 Course <Elliott Glaser MD - Last Filed: 01/25/24 20:57> Orders Ordered: ED Orders 01/25/24 18:21 US axillary only rt Stat 01/25/24 18:25 CBC Auto Diff [Complete Blood Count AUTO DIFF] Stat CMP [Comprehensive Metabolic Panel] Stat Lactate (Lactic Acid) Stat Discontinued Medications Ceftriaxone Sodium 2,000 mg/ (Sodium Chloride) 100 mls @ 200 mls/hr IV NOW ONE Stop: 01/25/24 19:45 Last Infusion: 01/25/24 20:35 Dose: Infused Documented By: Admin: 01/25/24 20:13 Dose: 200 mls/hr Documented By: MAGGY Vital Signs Vital signs: Vital Signs - 8 hr 01/25/24 14:15 01/25/24 14:16 01/25/24 14:16 Temperature Pulse Rate 86 Respiratory Rate Blood Pressure 140/67 Pulse Oximetry 98 99 Oxygen Delivery Method 01/25/24 14:19 01/25/24 14:30 01/25/24 14:30 Temperature 98.0 F Pulse Rate 83 80 Respiratory Rate 16 Blood Pressure 140/67 131/63 Pulse Oximetry 98 96 Oxygen Delivery Method Room Air 01/25/24 14:48 01/25/24 15:00 01/25/24 15:27 Temperature Pulse Rate 79 Respiratory Rate Blood Pressure 126/60 Pulse Oximetry 96 97 Oxygen Delivery Method 01/25/24 15:30 01/25/24 15:30 01/25/24 16:00 Temperature 98.2 F Pulse Rate 81 81 Respiratory Rate Blood Pressure 159/74 H Pulse Oximetry 98 97 Oxygen Delivery Method 01/25/24 16:27 01/25/24 16:27 01/25/24 16:30 Temperature Pulse Rate 81 84 Respiratory Rate Blood Pressure 144/68 H Pulse Oximetry 98 97 Oxygen Delivery Method Room Air 01/25/24 16:30 01/25/24 17:00 01/25/24 17:30 Temperature Pulse Rate 91 H 75 Respiratory Rate Blood Pressure 149/70 H Pulse Oximetry 96 96 Oxygen Delivery Method Room Air 01/25/24 18:00 01/25/24 18:12 01/25/24 18:12 Temperature Pulse Rate 81 77 Respiratory Rate Blood Pressure 136/64 Pulse Oximetry 97 96 Oxygen Delivery Method Room Air 01/25/24 18:13 01/25/24 18:30 01/25/24 19:00 Temperature Pulse Rate 80 75 Respiratory Rate Blood Pressure 136/64 Pulse Oximetry 97 98 Oxygen Delivery Method Room Air 01/25/24 19:30 01/25/24 20:00 Temperature Pulse Rate 77 78 Respiratory Rate 18 Blood Pressure 134/60 Pulse Oximetry 98 97 Oxygen Delivery Method <Bernadette Tejeda MD - Last Filed: 01/25/24 20:08> Orders Ordered: ED Orders 01/25/24 18:21 US axillary only rt Stat 01/25/24 18:25 CBC Auto Diff [Complete Blood Count AUTO DIFF] Stat CMP [Comprehensive Metabolic Panel] Stat Lactate (Lactic Acid) Stat Discontinued Medications Ceftriaxone Sodium 2,000 mg/ (Sodium Chloride) 100 mls @ 200 mls/hr IV NOW ONE Stop: 01/25/24 19:45 Last Infusion: 01/25/24 20:35 Dose: Infused Documented By: Admin: 01/25/24 20:13 Dose: 200 mls/hr Documented By: MAGGY Vital Signs Vital signs: Vital Signs - 8 hr 01/25/24 14:15 01/25/24 14:16 01/25/24 14:16 Temperature Pulse Rate 86 Respiratory Rate Blood Pressure 140/67 Pulse Oximetry 98 99 Oxygen Delivery Method 01/25/24 14:19 01/25/24 14:30 01/25/24 14:30 Temperature 98.0 F Pulse Rate 83 80 Respiratory Rate 16 Blood Pressure 140/67 131/63 Pulse Oximetry 98 96 Oxygen Delivery Method Room Air 01/25/24 14:48 01/25/24 15:00 01/25/24 15:27 Temperature Pulse Rate 79 Respiratory Rate Blood Pressure 126/60 Pulse Oximetry 96 97 Oxygen Delivery Method 01/25/24 15:30 01/25/24 15:30 01/25/24 16:00 Temperature 98.2 F Pulse Rate 81 81 Respiratory Rate Blood Pressure 159/74 H Pulse Oximetry 98 97 Oxygen Delivery Method 01/25/24 16:27 01/25/24 16:27 01/25/24 16:30 Temperature Pulse Rate 81 84 Respiratory Rate Blood Pressure 144/68 H Pulse Oximetry 98 97 Oxygen Delivery Method Room Air 01/25/24 16:30 01/25/24 17:00 01/25/24 17:30 Temperature Pulse Rate 91 H 75 Respiratory Rate Blood Pressure 149/70 H Pulse Oximetry 96 96 Oxygen Delivery Method Room Air 01/25/24 18:00 01/25/24 18:12 01/25/24 18:12 Temperature Pulse Rate 81 77 Respiratory Rate Blood Pressure 136/64 Pulse Oximetry 97 96 Oxygen Delivery Method Room Air 01/25/24 18:13 01/25/24 18:30 01/25/24 19:00 Temperature Pulse Rate 80 75 Respiratory Rate Blood Pressure 136/64 Pulse Oximetry 97 98 Oxygen Delivery Method Room Air 01/25/24 19:30 01/25/24 20:00 Temperature Pulse Rate 77 78 Respiratory Rate 18 Blood Pressure 134/60 Pulse Oximetry 98 97 Oxygen Delivery Method MDM - Skin/Abscess/Foreign Bdy <Elliott Glaser MD - Last Filed: 01/25/24 20:57> Lab Data 01/25/24 18:25 01/25/24 18:25 Labs: Lab Results 01/25/24 Range/Units 18:25 WBC 1.6 L* (4.5-11.0) X10^3/uL RBC 4.22 (4.0-5.2) X10^6/uL Hgb 12.5 (12.0-16.0) g/dL Hct 35.4 L (36-46) % MCV 84.0 (80-100) fL MCH 29.7 (26-34) PG MCHC 35.4 (30-36) % RDW 14.6 (11.6-14.8) % Plt Count 145 L (150-400) X10^3/uL Neut % (Auto) Not Reportable Lymph % (Auto) Not Reportable [place] % (Auto) Not Reportable Eos % (Auto) Not Reportable Baso % (Auto) Not Reportable Lymph # (Auto) Not Reportable [place] # (Auto) Not Reportable Baso # (Auto) Not Reportable Total Counted 100 Seg Neutrophils % 1.0 L (38-70) % Lymphocytes % (Manual) 86.0 H (25-45) % Monocytes % (Manual) 13.0 H (2-11) % Neutrophils # (Manual) 16 L (3803-3575) /uL RBC Morphology Normal morphology Sodium 138 (137-145) mmol/L Potassium 3.9 (3.4-5.1) mmol/L Chloride 106 (98-107) mmol/L Carbon Dioxide 26 (22-32) mmol/L BUN 18 H (7-17) mg/dL Creatinine 0.68 (0.52-1.04) mg/dL Estimated GFR > 60 (>60) mL/min BUN/Creatinine Ratio 26.5 H (6-22) Glucose 97 (80-110) mg/dL Lactate 0.6 L (0.7-2.1) mmol/L Calcium 8.8 (8.4-10.2) mg/dL Total Bilirubin 0.6 (0.2-1.3) mg/dL AST 21 (14-36) IU/L ALT 15 (<35) IU/L Alkaline Phosphatase 107 (38-126) U/L Total Protein 5.7 L (6.3-8.2) g/dL Albumin 3.8 (3.5-5.0) g/dL Globulin 1.9 (1.7-4.1) g/dL Albumin/Globulin Ratio 2.0 (1.0-2.8) MDM Narrative Medical decision making narrative: 68-year-old female with history of neutropenia, with 2 days duration right axillary lesion, possible spontaneous drainage by history, 2 x 1.5 cm oval nodular lesion with central ulceration, might have recently spontaneously drained, I could not appreciate fluctuance on exam, and I could not express any fluid for culture, area of redness and swelling is decreased per patient since seen in clinic. We will send labs given history of neutropenia, to evaluate ANC. No fever on triage. Ultrasound right axilla to look for any drainable fluid collection ordered. 1829, labs pending. Ultrasound to evaluate for any drainable fluid collection right axilla requested, to be performed. Signed out to oncoming ED shift physician Dr. Tejeda Care is assumed, labs reviewed, patient is independently evaluated. The lesion under her armpit is approximately 1-1/2 cm in diameter circular raised edges central debris she is very clear that this has been there less than a week and did not have underlying tenderness or fullness to suggest this might be a necrotic lymph node. There is minor erythema and no lymphangitic streaking. Minimal tenderness. We will opt to go ahead and give her a dose of ceftriaxone home waiting for ultrasound results. Preliminary ultrasound results show the localized inflammation and irritation that can be seen superficially. There is no underlying abscess and no underlying larger lymph node or suggestion of underlying necrosis or other pathology. Patient was given 2 g of IV ceftriaxone in the emergency department. We will ask her to complete an additional 7 days of oral doxycycline. Prescriptions were given. We will ask her to follow up with her primary care physician and she understands reasons to return to the emergency department if she has not improving <Bernadette Tejeda MD - Last Filed: 01/25/24 20:08> Lab Data Labs: Lab Results 01/25/24 Range/Units 18:25 WBC 1.6 L* (4.5-11.0) X10^3/uL RBC 4.22 (4.0-5.2) X10^6/uL Hgb 12.5 (12.0-16.0) g/dL Hct 35.4 L (36-46) % MCV 84.0 (80-100) fL MCH 29.7 (26-34) PG MCHC 35.4 (30-36) % RDW 14.6 (11.6-14.8) % Plt Count 145 L (150-400) X10^3/uL Neut % (Auto) Not Reportable Lymph % (Auto) Not Reportable [place] % (Auto) Not Reportable Eos % (Auto) Not Reportable Baso % (Auto) Not Reportable Lymph # (Auto) Not Reportable [place] # (Auto) Not Reportable Baso # (Auto) Not Reportable Total Counted 100 Seg Neutrophils % 1.0 L (38-70) % Lymphocytes % (Manual) 86.0 H (25-45) % Monocytes % (Manual) 13.0 H (2-11) % Neutrophils # (Manual) 16 L (0944-9340) /uL RBC Morphology Normal morphology Sodium 138 (137-145) mmol/L Potassium 3.9 (3.4-5.1) mmol/L Chloride 106 (98-107) mmol/L Carbon Dioxide 26 (22-32) mmol/L BUN 18 H (7-17) mg/dL Creatinine 0.68 (0.52-1.04) mg/dL Estimated GFR > 60 (>60) mL/min BUN/Creatinine Ratio 26.5 H (6-22) Glucose 97 (80-110) mg/dL Lactate 0.6 L (0.7-2.1) mmol/L Calcium 8.8 (8.4-10.2) mg/dL Total Bilirubin 0.6 (0.2-1.3) mg/dL AST 21 (14-36) IU/L ALT 15 (<35) IU/L Alkaline Phosphatase 107 (38-126) U/L Total Protein 5.7 L (6.3-8.2) g/dL Albumin 3.8 (3.5-5.0) g/dL Globulin 1.9 (1.7-4.1) g/dL Albumin/Globulin Ratio 2.0 (1.0-2.8) MDM Narrative Medical decision making narrative: 68-year-old female with history of neutropenia, with 2 days duration right axillary lesion, possible spontaneous drainage by history, 2 x 1.5 cm oval nodular lesion with central ulceration, might have recently spontaneously drained, I could not appreciate fluctuance on exam, and I could not express any fluid for culture, area of redness and swelling is decreased per patient since seen in clinic. We will send labs given history of neutropenia, evaluate ANC. No fever on triage. Ultrasound right axilla to look for any drainable fluid collection ordered. 183, labs pending. Ultrasound to evaluate for any drainable fluid collection right axilla requested, to be performed. Signed out to oncoming ED shift physician Dr. Tejeda Care is assumed, labs reviewed, patient is independently evaluated. The lesion under her armpit is approximately 1-1/2 cm in diameter circular raised edges central debris she is very clear that this has been there less than a week and did not have underlying tenderness or fullness to suggest this might be a necrotic lymph node. There is minor erythema and no lymphangitic streaking. Minimal tenderness. We will opt to go ahead and give her a dose of ceftriaxone home waiting for ultrasound results. Preliminary ultrasound results show the localized inflammation and irritation that can be seen superficially. There is no underlying abscess and no underlying larger lymph node or suggestion of underlying necrosis or other pathology. Patient was given 2 g of IV ceftriaxone in the emergency department. We will ask her to complete an additional 7 days of oral doxycycline. Prescriptions were given. We will ask her to follow up with her primary care physician and she understands reasons to return to the emergency department if she has not improving Discharge Plan Departure Patient Disposition: Home Clinical Impression: Folliculitis Neutropenia Qualifiers: Neutropenia type: other Qualified Code(s): D70.8 - Other neutropenia Instructions: DI for Folliculitis Activity Restrictions/Additional Instructions: Thank you for coming in today There does not appear to be large abscess or underlying necrotic tissue of any type of concern associated with this superficial wound in your armpit. Most likely explanation would be a small infection that is started around hair follicle. Your body does seem to be handling it fairly well but because of your chronic neutropenia you were given 2 g of IV ceftriaxone, an antibiotic, in the emergency department. I am going to suggest an additional 7 days of oral doxycycline as well. 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
--- NOTE | 2024-01-25 18:21 | DI.US.S_ITS ---
PROCEDURE: US AXILLARY ONLY INDICATIONS: lesion, no fluctuance, eval for drainable fluid TECHNIQUE: Real-time focused scanning was performed of the right axilla, with image documentation. COMPARISON: None. FINDINGS: At the patient directed area of palpable concern, there is mild skin thickening and underlying subcutaneous soft tissue edema. Mild associated increased vascularity. No organized fluid collection is seen. No suspicious soft tissue mass. No adenopathy visualized. IMPRESSION: Right axillary skin thickening and underlying subcutaneous soft tissue edema likely related to possible cellulitis. No drainable fluid collection seen. No adenopathy. If there are persistent clinical symptoms or extension towards the right breast, recommend further evaluation with diagnostic bilateral mammogram/ultrasound. Otherwise, recommend routine screening mammography in April 2024. BIRADS 2 (benign) Dictated by: Garrick Sharma M.D. on 01/25/2024 at 20:30 Approved by: Garrick Sharma M.D. on 01/25/2024 at 20:37
[2024-01-25 18:39] LABS: Hematocrit 35.4 % (36-46); Hemoglobin 12.5 g/dL (12.0-16.0); Mean Corpuscular HGB Conc 35.4 % (30-36); Mean Corpuscular Hemoglobin 29.7 PG (26-34); Platelet Count 145 X10^3/uL (150-400); Red Blood Cell Count 4.22 X10^6/uL (4.0-5.2); Red Cell Distribution Width 14.6 % (11.6-14.8)
[2024-01-25 18:40] LABS: Add Manual Diff / Slide Review YES; White Blood Cell Count 1.6 X10^3/uL (4.5-11.0)
[2024-01-25 18:50] LABS: Lactate (Lactic Acid) 0.6 mmol/L (0.7-2.1)
[2024-01-25 18:51] LABS: Alanine Aminotransferase 15 IU/L (<35); Albumin 3.8 g/dL (3.5-5.0); Alkaline Phosphatase 107 U/L (38-126); Aspartate Aminotransferase 21 IU/L (14-36); BUN Creatinine Ratio 26.5 (6-22); Bilirubin Total 0.6 mg/dL (0.2-1.3); Blood Urea Nitrogen 18 mg/dL (7-17); Calcium 8.8 mg/dL (8.4-10.2); Carbon Dioxide 26 mmol/L (22-32); Chloride 106 mmol/L (98-107); Estimated Glomerular Filt Rate > 60 mL/min (>60); Globulin 1.9 g/dL (1.7-4.1); Glucose 97 mg/dL (80-110); HEMOLYSIS < 15 (0-50); Potassium 3.9 mmol/L (3.4-5.1); Sodium 138 mmol/L (137-145); Total Protein 5.7 g/dL (6.3-8.2)
[2024-01-25 19:17] LABS: Neutrophils Absolute Manual 16 /uL (3000-5900); RBC Morphology Normal Morphology; Total Cells Counted 100
[2024-01-25] MEDS: cefTRIAXone 2,000 MG in SODIUM CHLORIDE 0.9% 100 ML 200 MG IV (20:13)
== END 2024-01-25 20:36 | disposition home or self-care (01) ==
PROVIDERS: Emergency Medicine; Emergency Provider Emergency Medicine; PCP Family Medicine
DX: L73.9 Follicular disorder, unspecified (principal); D70.8 Other neutropenia
CPT/HCPCS: 36415; 76882; 80053; 83605; 85007; 85025; 96365; 99284; J0696

== ENCOUNTER → 2024-03-12 13:01 | Outpatient (CLI) | payer MEDICARE, SELFPAY ==
[2024-03-12 19:03] LABS: Hematocrit 40.4 % (36-46); Hemoglobin 13.6 g/dL (12.0-16.0); Mean Corpuscular HGB Conc 33.7 % (30-36); Mean Corpuscular Hemoglobin 28.9 PG (26-34); Mean Corpuscular Volume 85.6 fL (80-100); Platelet Count 161 X10^3/uL (150-400); Red Blood Cell Count 4.72 X10^6/uL (4.0-5.2); Red Cell Distribution Width 15.8 % (11.6-14.8)
[2024-03-12 19:04] LABS: Add Manual Diff / Slide Review YES
[2024-03-12 19:58] LABS: Neutrophils Absolute Manual 70 /uL (3000-5900); Total Cells Counted 100
[2024-03-12 19:59] LABS: Anisocytosis 1+
[2024-03-12 20:06] LABS: White Blood Cell Count 1.4 X10^3/uL (4.5-11.0)
== END ==
PROVIDERS: PCP Family Medicine; Visit Provider Family Medicine
DX: D70.9 Neutropenia, unspecified (principal)
CPT/HCPCS: 85007; 85025

== ENCOUNTER → 2024-03-26 14:12 | Outpatient (CLI) | payer MEDICARE, SELFPAY | PROVIDERS: PCP Family Medicine; Visit Provider Physician Assistant | DX: R10.9 Unspecified abdominal pain (principal); R21 Rash and other nonspecific skin eruption; N89.8 Other specified noninflammatory disorders of vagina | CPT/HCPCS: 87070; 87075; 87086; 87205; 87252 ==

== ENCOUNTER → 2024-04-17 13:01 | Outpatient (CLI) | payer MEDICARE, SELFPAY ==
[2024-04-17 19:50] LABS: Hematocrit 41.6 % (36-46); Hemoglobin 14.2 g/dL (12.0-16.0); Mean Corpuscular Hemoglobin 28.9 PG (26-34); Mean Corpuscular Volume 84.8 fL (80-100); Platelet Count 168 X10^3/uL (150-400); Red Cell Distribution Width 15.1 % (11.6-14.8)
[2024-04-17 20:19] LABS: Add Manual Diff / Slide Review YES
[2024-04-17 20:31] LABS: Anisocytosis 1+; Neutrophils Absolute Manual 120 /uL (3000-5900); Rouleaux 1+; Smudge Cells 1+; Total Cells Counted 100
[2024-04-17 20:32] LABS: Poikilocytosis 1+
[2024-04-17 20:53] LABS: White Blood Cell Count 1.5 X10^3/uL (4.5-11.0)
== END ==
PROVIDERS: PCP Family Medicine; Visit Provider Family Medicine
DX: D70.9 Neutropenia, unspecified (principal)
CPT/HCPCS: 85007; 85025

== ENCOUNTER → 2024-10-08 13:03 | Outpatient (CLI) | payer MEDICARE, SELFPAY ==
[2024-10-08 19:18] LABS: Hematocrit 44.3 % (36-46); Hemoglobin 15.2 g/dL (12.0-16.0); Mean Corpuscular HGB Conc 34.4 % (30-36); Mean Corpuscular Hemoglobin 28.8 PG (26-34); Mean Corpuscular Volume 83.8 fL (80-100); Platelet Count 173 X10^3/uL (150-400); Red Blood Cell Count 5.28 X10^6/uL (4.0-5.2); Red Cell Distribution Width 13.8 % (11.6-14.8); White Blood Cell Count 2.4 X10^3/uL (4.5-11.0)
[2024-10-08 20:23] LABS: Neutrophils Absolute Manual 552 /uL (3000-5900); RBC Morphology Normal Morphology; Total Cells Counted 100
== END ==
PROVIDERS: PCP Family Medicine; Referring Provider Family Medicine; Visit Provider Family Medicine
DX: D70.9 Neutropenia, unspecified (principal)
CPT/HCPCS: 85025

== ENCOUNTER → 2025-03-04 11:38 | Outpatient (CLI) | payer MEDICARE, SELFPAY ==
[2025-03-04 19:33] LABS: Hematocrit 42.8 % (36-46); Hemoglobin 15.1 g/dL (12.0-16.0); Mean Corpuscular HGB Conc 35.2 % (30-36); Mean Corpuscular Hemoglobin 29.9 PG (26-34); Mean Corpuscular Volume 84.8 fL (80-100); Platelet Count 153 X10^3/uL (150-400)
[2025-03-04 21:30] LABS: Add Manual Diff / Slide Review YES
[2025-03-04 21:58] LABS: Band Neutrophils Percent 5.0 % (3-7); Lymphocytes Percent Manual 48.0 % (25-45); Monocytes Percent Manual 20.0 % (2-11); Neutrophils Absolute Manual 576 /uL (3000-5900); RBC Morphology Normal Morphology; Segmented Neutrophils Percent 27.0 % (38-70); Total Cells Counted 100
== END ==
PROVIDERS: PCP Family Medicine; Visit Provider Family Medicine
DX: D70.9 Neutropenia, unspecified (principal)
CPT/HCPCS: 85007; 85025

== ENCOUNTER → 2025-06-09 10:55 | Outpatient (CLI) | payer MEDICARE, SELFPAY ==
[2025-06-09 18:36] LABS: Add Manual Diff / Slide Review NO; Hematocrit 42.5 % (36-46); Hemoglobin 15.1 g/dL (12.0-16.0); Lymphocytes Absolute Auto 900 /uL (1100-4500); Mean Corpuscular HGB Conc 35.5 % (30-36); Mean Corpuscular Hemoglobin 30.4 PG (26-34); Mean Corpuscular Volume 85.5 fL (80-100); Platelet Count 173 X10^3/uL (150-400)
[2025-06-09 18:41] LABS: Blood Urea Nitrogen 11 mg/dL (7-17); Calcium 9.2 mg/dL (8.4-10.2); Carbon Dioxide 29 mmol/L (22-32); Chloride 98 mmol/L (98-107); Cholesterol 285 mg/dL (140-199); Estimated Glomerular Filt Rate > 60 mL/min (>60); Glucose 93 mg/dL (70-99); HDL Cholesterol 81 mg/dL (40-60); HEMOLYSIS 17 (0-50); Potassium 3.8 mmol/L (3.4-5.1); Sodium 133 mmol/L (137-145); Triglycerides 135 mg/dL (35-150)
== END ==
PROVIDERS: PCP Family Medicine; Referring Provider Family Medicine; Visit Provider Family Medicine
DX: Z13.6 Encounter for screening for cardiovascular disorders (principal); D70.9 Neutropenia, unspecified; R41.3 Other amnesia
CPT/HCPCS: 80048; 80061; 85025